=== PATIENT | male | born 1960 | race Caucasian/White ===

== ENCOUNTER → 2025-02-19 | Outpatient (CLI) | payer MEDICARE, BC ==
[~2025-02-19] MED LIST: BAYE325T2 PO; IBUP600T42 PO
== END ==
LOC: M ONCR 15:34
PROVIDERS: ATTEND General Practice
DX: R91.8 Other nonspecific abnormal finding of lung field (principal); I87.1 Compression of vein; Z87.891 Personal history of nicotine dependence; Z79.82 Long term (current) use of aspirin

== ENCOUNTER 2025-03-01 14:55 | Outpatient (RCR) | payer BC | END 2025-03-12 | LOC: M ONCR 14:55 | PROVIDERS: ATTEND General Practice | DX: Z51.0 Encounter for antineoplastic radiation therapy (principal); C78.1 Secondary malignant neoplasm of mediastinum ==

== ENCOUNTER → 2025-03-01 | Outpatient (CLI) | payer BC | LOC: M PLARAD 13:21 | PROVIDERS: ATTEND Student in an Organized Health Care Education/Training Program | DX: C34.91 Malignant neoplasm of unspecified part of right bronchus or lung (principal) | CPT/HCPCS: 78815; A9552 ==

== ENCOUNTER 2025-03-05 10:49 | Day surgery (SDC) | payer BC ==
[~2025-03-05] VITALS: Ht 185.4 cm; Wt 69.9 kg
[2025-03-05] MEDS ORDERED: LR 1,000 ML IV SCH ×2 (11:10→13:40)
[2025-03-05] MEDS ORDERED: LIDOCAINE 2% 100 MG/5 ML SDV (FOR ANES.) As Ordered ONE (11:33)
[2025-03-05] MEDS ORDERED: ROCURONIUM BROMIDE 50MG/5ML VIAL As Ordered ONE (11:33)
[2025-03-05] MEDS ORDERED: MIDAZOLAM INJ 2 MG/2 ML VIAL As Ordered ONE (11:34)
[2025-03-05] MEDS: THROMBIN 5,000 UNITS VIAL As Ordered ONE (12:20)
[2025-03-05] MEDS: CETACAINE SPRAY 5 GM As Ordered ONE (12:45)
[2025-03-05] MEDS ORDERED: dexAMETHasone 4 MG/ML 1 ML VIAL As Ordered ONE (12:51)
[2025-03-05] MEDS ORDERED: ONDANSETRON 4MG/2ML VIAL As Ordered ONE (12:51)
[2025-03-05] MEDS ORDERED: KETOROLAC 30 MG/ML 1 ML VIAL As Ordered ONE (12:51)
[2025-03-05] MEDS ORDERED: SUGAMMADEX SODIUM 500 MG/5 ML VIAL As Ordered ONE (12:53)
[2025-03-05] MEDS ORDERED: PHENYLephrine 500MCG 5ML (100MCG/ML) SYRINGE As Ordered ONE (12:56)
[2025-03-05] MEDS: EPINEPHrine 1 MG/10 ML SYRINGE 1.5IN As Ordered ONE (13:30)
[2025-03-05] MEDS ORDERED: HYDROMORPHONE HCL 0.5 MG/0.5 ML SYRINGE IV PRN (13:40)
[2025-03-05] MEDS ORDERED: ONDANSETRON 4MG/2ML VIAL IV PRN (13:40)
[2025-03-05 14:35] VITALS: BP 118/65; TEMP 98.5; O2SAT 94
== END 2025-03-05 14:53 | disposition home or self-care (01) ==
LOC: M SDC 10:49
PROVIDERS: ATTEND Internal Medicine Pulmonary Disease
DX: R91.8 Other nonspecific abnormal finding of lung field (principal); R59.1 Generalized enlarged lymph nodes; R06.02 Shortness of breath; I87.1 Compression of vein; Z79.82 Long term (current) use of aspirin; Z87.891 Personal history of nicotine dependence
CPT/HCPCS: 31625; 31628; 31652; 71045; 76000; 88173; 88305; J0168; J1100; J1885; J2250; J2371; J2405; J3010

== ENCOUNTER → 2025-03-12 | Outpatient (CLI) | payer BC | LOC: M RAD 06:43 | PROVIDERS: ATTEND Internal Medicine Pulmonary Disease | DX: R91.8 Other nonspecific abnormal finding of lung field (principal); R59.1 Generalized enlarged lymph nodes ==

== ENCOUNTER 2025-03-17 08:29 | Day surgery (SDC) | payer BC ==
[~2025-03-17] VITALS: Ht 185.4 cm; Wt 67.2 kg
[2025-03-17] MEDS: LR 1,000 ML IV SCH (09:35)
[2025-03-17] MEDS ORDERED: ROCURONIUM BROMIDE 50MG/5ML VIAL As Ordered ONE (10:14)
[2025-03-17] MEDS ORDERED: LIDOCAINE 2% 100 MG/5 ML SDV (FOR ANES.) As Ordered ONE (10:14)
[2025-03-17] MEDS ORDERED: MIDAZOLAM INJ 2 MG/2 ML VIAL As Ordered ONE (10:14)
[2025-03-17] MEDS: THROMBIN 5,000 UNITS VIAL As Ordered ONE (10:37)
[2025-03-17] MEDS: ALBUTEROL SULFATE 2.5 MG/0.5 ML INH CONCENTRATE NEB SOLN INH ONE (10:38)
[2025-03-17] MEDS: LIDOCAINE PRES-FREE 2% 10 ML AMP INH ONE (10:38)
[2025-03-17] MEDS ORDERED: ONDANSETRON 4MG/2ML VIAL As Ordered ONE (11:07)
[2025-03-17] MEDS ORDERED: dexAMETHasone 4 MG/ML 1 ML VIAL As Ordered ONE (11:07)
[2025-03-17] MEDS: CETACAINE SPRAY 5 GM As Ordered ONE (11:07)
[2025-03-17] MEDS ORDERED: SUGAMMADEX SODIUM 200 MG/2 ML VIAL As Ordered ONE (11:07)
[2025-03-17] MEDS ORDERED: PHENYLephrine 500MCG 5ML (100MCG/ML) SYRINGE As Ordered ONE (11:57)
[2025-03-17] MEDS: EPINEPHrine 1 MG/10 ML SYRINGE 1.5IN As Ordered ONE (12:00)
[2025-03-17] MEDS ORDERED: HYDROMORPHONE HCL 0.5 MG/0.5 ML SYRINGE IV PRN (12:25)
[2025-03-17] MEDS ORDERED: MORPHINE 4 MG/ML 1 ML VIAL IV PRN (12:25)
[2025-03-17 13:14] VITALS: BP 111/63; TEMP 98.2; O2SAT 99
[2025-03-24] MEDS ORDERED: ONDA-84 PO (08:46)
== END 2025-03-17 13:41 | disposition home or self-care (01) ==
LOC: M SDC 08:29
PROVIDERS: ATTEND Internal Medicine Pulmonary Disease
DX: J98.4 Other disorders of lung (principal); J84.10 Pulmonary fibrosis, unspecified; Z87.891 Personal history of nicotine dependence
CPT/HCPCS: 31625; 31627; 31654; 71045; 76000; 88305; C1601; J0168; J1100; J2250; J2371; J2405; J3010

== ENCOUNTER → 2025-03-20 | Outpatient (CLI) | payer BC ==
[~2025-03-20] VITALS: Ht 182.9 cm; Wt 67.3 kg
[~2025-03-20] MED LIST changes: +ONDA-84 PO
[2025-03-20 10:45] VITALS: TEMP 98.1
[2025-03-20] MEDS: ceFAZolin SODIUM 2 GM in DEXTROSE 5% (D5W) ADV/MINI-BAG 50 ML IV ONE (11:41)
[2025-03-20] MEDS: NS (Normal Saline) 0.9% 1,000 ML IV SCH (11:41)
[2025-03-20] MEDS: MIDAZOLAM INJ 2 MG/2 ML VIAL IV PRN (13:07)
[2025-03-20] MEDS: LIDOCAINE 1% MDV 20 ML VIAL SC SCH (13:19)
[2025-03-20 14:00] VITALS: BP 115/69; O2SAT 98
== END ==
LOC: M IRPRO 09:32
PROVIDERS: ATTEND Student in an Organized Health Care Education/Training Program
DX: C34.90 Malignant neoplasm of unspecified part of unspecified bronchus or lung (principal)
CPT/HCPCS: 36561; 76937; 99152; J0688; J1642; J2250; J3010

== ENCOUNTER → 2025-04-01 | Outpatient (CLI) | payer BC | LOC: M ONCR 13:34 | PROVIDERS: ATTEND General Practice | DX: I87.1 Compression of vein (principal); Z92.3 Personal history of irradiation ==

== ENCOUNTER → 2025-04-12 | Outpatient (POV) | payer BC ==
[~2025-04-12] MED LIST changes: +LIDO30CR18 TOP
== END ==
LOC: M IRPOV 08:00
PROVIDERS: ATTEND Registered Nurse School
DX: Z45.2 Encounter for adjustment and management of vascular access device (principal); C34.92 Malignant neoplasm of unspecified part of left bronchus or lung